=== PATIENT | male | born 1995 | race Caucasian/White ===

== ENCOUNTER 2021-04-10 18:37 | Emergency (ER) | payer BC, MEDICAID ==
[2021-04-10] MEDS ORDERED: MORPHINE SULFATE 2 MG INJ IV ONE (19:20)
[2021-04-10] MEDS ORDERED: Zofran 4 MG/2 ML VIAL IV ONE (19:20)
[2021-04-10] MEDS ORDERED: Sodium Chloride 0.9% 1000 ML 1,000 ML IV STA (19:20)
[2021-04-10 19:42] LABS: BASOPHIL % 0.2 % (0.0-0.4); Basophil (Absolute #) 0.01 (0-0.4); Eosinophil % 1.5 % (0.00-5.0); Eosinophil (Absolute #) 0.06 (0-0.5); Hematocrit 43.4 % (42-50); Hemoglobin 14.9 gm/dl (12.5-18.0); Lymphocyte (Absolute #) 0.81 (1.0-4.6); Lymphocytes % 19.9 % (24.0-44.0); Mean Cell Volume 87.7 fl (78-100); Mean Corpuscular Hemoglobin 30.1 pg (26-32); Mean Corpuscular Hgb Concent. 34.3 g/dl (32-36); Mean Platelet Volume 9.1 fl (7.5-11.0); Monocyte (Absolute #) 0.79 (0.0-1.3); Monocytes % 19.4 % (0.0-12.0); Platelet Count 226 K/mm3 (150-450); Red Blood Count 4.95 M/mm3 (4.1-5.6); Red Cell Distribution Width 12.4 % (11.5-14.0); White Blood Count 4.1 K/mm3 (4.0-10.5)
[2021-04-10 20:00] LABS: ALBUMIN 4.7 g/dL (3.5-5.0); ALKALINE PHOSPHATASE 84 U/L (38-126); ANION GAP 14.2 MEQ/L (5-15); BLOOD UREA NITROGEN 20 mg/dL (9-20); CHLORIDE 103 mmol/L (98-107); Calcium 9.6 mg/dL (8.4-10.2); Carbon Dioxide 25 mmol/L (22-30); Creatinine 1 0.89 mg/dL (0.66-1.25); EST GLOMERULAR FILTRATION RATE > 60.0 ML/MIN; Glucose 82 mg/dL (74-106); LIPASE 34 U/L (23-300); Potassium 3.9 mmol/L (3.5-5.1); SGOT/AST 49 U/L (17-59); SGPT/ALT 32 U/L (0-50); SODIUM 139 mmol/L (137-145); Total Protein 7.4 g/dL (6.3-8.2)
--- NOTE | 2021-04-10 20:06 | ERPHSYRPT ---
- History of Present Illness Time Seen by Provider: 04/10/21 18:51 Historian: patient Exam Limitations: no limitations Patient Subjective Stated Complaint: pt alert,resp easy, skin w/d/p. face mask in place,abd soft, no edema Triage Nursing Assessment: pt states he is having lose stools for a month now, a stool every 3-4 hours, able to eat a drink well Physician History: 25 years old presented in the ER with 1 month history of off-and-on diarrhea loose watery having 3-4 bowel movements every day with cramping generalized without any associated nausea or vomiting. Patient reports he has to strain every time. No fever or chills reported. Timing/Duration: week(s) (4), gradual onset, worse Quality: cramping Abdominal Pain Onset Location: generalized abdomen Pain Radiation: no radiation Severity of Pain-Max: moderate Severity of Pain-Current: mild Modifying Factors: Worsens With: defecating Associated Symptoms: diarrhea, No heartburn, No nausea Previous symptoms: same symptoms as today Allergies/Adverse Reactions: Penicillins Allergy (Verified 04/10/21 18:54) Home Medications: Buspirone HCl 5 mg [Buspar 5 mg] 1 ea DAILY 04/10/21 [History] Cariprazine HCl [Vraylar] 1 mg DAILY 04/10/21 [History] Hx Influenza Vaccination/Date Given: No Hx Pneumococcal Vaccination/Date Given: No Immunizations Up to Date: Yes Travel Risk - International Travel Have you traveled outside of the country in past 3 weeks: No - Coronavirus Screening Are you exhibiting any of the following symptoms?: No Close contact with a COVID-19 positive Pt in past 14-21 Days: No - Vaccine Status Have you recieved a Covid-19 vaccination: No - Review of Systems Constitutional: No Symptoms Eyes: No Symptoms Ears, Nose, & Throat: No Symptoms Respiratory: No Symptoms Cardiac: No Symptoms Abdominal/Gastrointestinal: Abdominal Pain, Diarrhea Genitourinary Symptoms: No Symptoms Musculoskeletal: No Symptoms Skin: No Symptoms Neurological: No Symptoms Psychological: Anxiety Endocrine: No Symptoms Hematologic/Lymphatic: No Symptoms Immunological/Allergic: No Symptoms - Past Medical History Pertinent Past Medical History: Yes Psycho-Social History: Anxiety, Depression, Other Other Medical History: ptsd - Past Surgical History Past Surgical History: No - Social History Smoking Status: Current some day smoker Exposure to second hand smoke: Yes Drug Use: none Patient Lives Alone: No - Nursing Vital Signs Nursing Vital Signs: Initial Vital Signs Temperature 97.0 F 04/10/21 18:47 Pulse Rate 74 04/10/21 18:47 Respiratory Rate 18 04/10/21 18:47 Blood Pressure 137/72 04/10/21 18:47 O2 Sat by Pulse Oximetry 100 04/10/21 18:47 Pain Scale Pain Intensity 6 - Physical Exam General Appearance: no apparent distress, alert Eye Exam: PERRL/EOMI, eyes nml inspection Ears, Nose, Throat Exam: normal ENT inspection, pharynx normal Neck Exam: normal inspection, non-tender, supple, full range of motion Respiratory Exam: normal breath sounds, lungs clear Cardiovascular Exam: regular rate/rhythm, normal heart sounds Gastrointestinal/Abdomen Exam: soft, normal bowel sounds, tenderness (Minimal generalized tenderness without guarding or rebound) Back Exam: normal inspection, normal range of motion Extremity Exam: normal inspection, normal range of motion Neurologic Exam: alert, oriented x 3, cooperative Skin Exam: normal color SpO2 Interpretation: normal SpO2: 100 O2 Delivery: Room Air Ordered Tests: Active Orders 24 hr Category Date Time Status IV Insertion STAT Care 04/10/21 19:20 Active NPO (ED) STAT Care 04/10/21 19:20 Active OBSTR/ACUTE ABDOMEN SERIES Stat Exams 04/10/21 19:21 Taken CBC W DIFF Stat Lab 04/10/21 19:30 Completed CMP Stat Lab 04/10/21 19:30 Completed LIPASE Stat Lab 04/10/21 19:30 Completed UA W/RFX UR CULTURE Stat Lab 04/10/21 20:42 Received Medication Summary Discontinued Medications Generic Name Dose Route Start Last Admin Trade Name Freq PRN Reason Stop Dose Admin Sodium Chloride 1,000 mls @ 999 mls/hr 04/10/21 19:20 04/10/21 20:16 Sodium Chloride 0.9% 1000 Ml IV 04/10/21 20:20 999 mls/hr .Q1H1M STA Administration Sodium Chloride Confirm 04/10/21 20:08 Sodium Chloride 0.9% 1000 Ml Administered 04/10/21 20:09 Dose 1,000 mls @ ud .ROUTE .STK-MED ONE Morphine Sulfate 2 mg 04/10/21 19:20 04/10/21 20:16 Morphine Sulfate 2 Mg Inj IV 04/10/21 19:21 2 mg STAT ONE Administration Morphine Sulfate Confirm 04/10/21 20:08 Morphine Sulfate 2 Mg Inj Administered 04/10/21 20:09 Dose 2 mg .ROUTE .STK-MED ONE Ondansetron HCl 4 mg 04/10/21 19:20 04/10/21 20:16 Zofran 4 Mg/2 Ml Vial IV 04/10/21 19:21 4 mg STAT ONE Administration Ondansetron HCl Confirm 04/10/21 20:08 Zofran 4 Mg/2 Ml Vial Administered 04/10/21 20:09 Dose 4 mg .ROUTE .STK-MED ONE Lab/Rad Data: Laboratory Result Diagrams 04/10/21 19:30 04/10/21 19:30 Laboratory Results 04/10/21 04/10/21 Range/Units 19:30 19:30 WBC 4.1 (4.0-10.5) K/mm3 RBC 4.95 (4.1-5.6) M/mm3 Hgb 14.9 (12.5-18.0) gm/dl Hct 43.4 (42-50) % MCV 87.7 (78-100) fl MCH 30.1 (26-32) pg MCHC 34.3 (32-36) g/dl RDW 12.4 (11.5-14.0) % Plt Count 226 (150-450) K/mm3 MPV 9.1 (7.5-11.0) fl Gran % 59.0 (36.0-66.0) % Eos # (Auto) 0.06 (0-0.5) Absolute Lymphs (auto) 0.81 L (1.0-4.6) Absolute Monos (auto) 0.79 (0.0-1.3) Lymphocytes % 19.9 L (24.0-44.0) % Monocytes % 19.4 H (0.0-12.0) % Eosinophils % 1.5 (0.00-5.0) % Basophils % 0.2 (0.0-0.4) % Absolute Granulocytes 2.40 (1.4-6.9) Basophils # 0.01 (0-0.4) Sodium 139 (137-145) mmol/L Potassium 3.9 (3.5-5.1) mmol/L Chloride 103 (98-107) mmol/L Carbon Dioxide 25 (22-30) mmol/L Anion Gap 14.2 (5-15) MEQ/L BUN 20 (9-20) mg/dL Creatinine 0.89 (0.66-1.25) mg/dL Estimated GFR > 60.0 ML/MIN Glucose 82 (74-106) mg/dL Calcium 9.6 (8.4-10.2) mg/dL Total Bilirubin 0.70 (0.2-1.3) mg/dL AST 49 (17-59) U/L ALT 32 (0-50) U/L Alkaline Phosphatase 84 (38-126) U/L Serum Total Protein 7.4 (6.3-8.2) g/dL Albumin 4.7 (3.5-5.0) g/dL Lipase 34 (23-300) U/L - Progress Progress: improved Progress Note: 04/10/21 20:57 Negative acute abdomen work-up. Given 2 mg morphine, feeling much better on reevaluation. Recommended outpatient follow-up. 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 Discussed signs symptoms of worsening needing return to ER which he seems understanding. Counseled pt/family regarding: lab results, diagnosis, need for follow-up, rad results - Departure Departure Disposition: Home Clinical Impression: Intermittent diarrhea Abdominal pain Qualifiers: Abdominal location: generalized Qualified Code(s): R10.84 - Generalized abdominal pain Condition: Stable Critical Care Time: No Referrals: LISA MCMAHON MD [Primary Care Provider] - Follow Up with PCP/3 days Instructions: Acute Abdomen (Belly Pain), Adult (DC), Diarrhea in Adolescents and Adults Additional Instructions: Drink plenty of fluids. Take Tylenol/ibuprofen as needed. Follow-up with primary care for reevaluation and may need evaluation/referral for gastroenterology. Return to ER for intractable abdominal pain/diarrhea/fever chills etc.
[2021-04-10] MEDS ORDERED: Sodium Chloride 0.9% 1000 ML 1,000 ML ONE (20:08)
[2021-04-10] MEDS ORDERED: MORPHINE SULFATE 2 MG INJ ONE (20:08)
[2021-04-10] MEDS ORDERED: Zofran 4 MG/2 ML VIAL ONE (20:08)
[2021-04-10 20:56] LABS: Appearance CLEAR (CLEAR); Bilirubin NEGATIVE (NEGATIVE); Blood NEGATIVE Ery/ul (0-5); Glucose NEGATIVE (NEGATIVE); Ketones SMALL (NEGATIVE); Leukocyte Esterase NEGATIVE (NEGATIVE); Mucus MANY /HPF (NEGATIVE); Nitrite NEGATIVE (NEGATIVE); Protein,Urine Dip NEGATIVE (Negative); Urobilinogen 2 mg/dL (0-1); WBC 0-2 /HPF (0-5)
[2021-04-10 21:16] VITALS: BP 109/49; PULSE 56; O2SAT 98
--- NOTE | 2021-04-10 22:17 | XRAY ---
Indication: Abdomen/rectal pain and diarrhea one month. Comparison: None 2 view abdomen nonacute and nonobstructed. Solid organs unremarkable. Osseous structures intact with mild double curvature thoracolumbar scoliosis. Single PA chest demonstrates normal heart and lungs with incidental right base calcified granuloma. Impression: Negative abdomen. Nonacute one view chest with incidental old granulomatous disease.
== END 2021-04-10 21:15 | disposition home or self-care (01) ==
LOC: ED 18:37
DX: R10.84 Generalized abdominal pain (principal)
CPT/HCPCS: 36000; 36415; 74022; 80053; 81001; 83690; 85025; 96374; 96375; 99284; J2270; J2405

== ENCOUNTER 2022-12-09 16:10 | Emergency (ER) | payer OTHER ==
--- NOTE | 2022-12-09 16:17 | ERPHSYRPT ---
- History of Present Illness Time Seen by Provider: 12/09/22 16:17 Source: patient Exam Limitations: no limitations Allergies/Adverse Reactions: Penicillins Allergy (Verified 04/10/21 18:54) Home Medications: Buspirone HCl 5 mg [Buspar 5 mg] 1 ea DAILY 04/10/21 [History] Cariprazine HCl [Vraylar] 1 mg DAILY 04/10/21 [History] Hx Influenza Vaccination/Date Given: No Hx Pneumococcal Vaccination/Date Given: No Travel Risk - Vaccine Status Have you recieved a Covid-19 vaccination: No - Past Medical History Pertinent Past Medical History: Yes Psycho-Social History: Anxiety, Depression, Other Other Medical History: ptsd - Past Surgical History Past Surgical History: No - Social History Smoking Status: Current some day smoker Exposure to second hand smoke: Yes Drug Use: none Patient Lives Alone: No - Departure Referrals: LISA MCMAHON MD [Primary Care Provider] - Follow up/PCP as directed
[2022-12-09 16:52] VITALS: BP 135/61; PULSE 90; O2SAT 99
--- NOTE | 2022-12-09 16:56 | ERPHSYRPT ---
- History of Present Illness Time Seen by Provider: 12/09/22 16:17 Source: patient Exam Limitations: no limitations Patient Subjective Stated Complaint: Abscess Triage Nursing Assessment: Patient ambulated back to ED and transferred self to bed. Patient A+O X3. Patient's skin pink, warm and dry. Patient complains of abscess to right inner groin that is red with hard area for two weeks. Patient also complains of rectal pressure for the past few days due to having extra large bowel movements. Patient denies pain or discomfort. Physician History: This is a 27-year-old white male who is a daily smoker of cigarettes. He also has anxiety issues. Patient complains with approximately 2 week history of swelling in the right inguinal/groin region. It is red and mildly tender. He feels that this is increased in size. In addition he has vague complaints of rectal pressure. However, he did state that he had a normal colonoscopy performed approximately 2 months ago. Patient has not had any fevers. He is not had any spontaneous bleeding from the rectum. Timing/Duration: week(s) (2) Quality: painful Severity: mild Location: other Possible Causes: no cause identified (Right groin) Associated Symptoms: denies symptoms Allergies/Adverse Reactions: Penicillins Allergy (Verified 12/09/22 16:42) Hx Influenza Vaccination/Date Given: No Hx Pneumococcal Vaccination/Date Given: No Immunizations Up to Date: Yes Travel Risk - International Travel Have you traveled outside of the country in past 3 weeks: No - Coronavirus Screening Are you exhibiting any of the following symptoms?: No Close contact with a COVID-19 positive Pt in past 14-21 Days: No - Vaccine Status Have you recieved a Covid-19 vaccination: No - Review of Systems Constitutional: No Symptoms Eyes: No Symptoms Ears, Nose, & Throat: No Symptoms Respiratory: No Symptoms Cardiac: No Symptoms Abdominal/Gastrointestinal: No Symptoms Genitourinary Symptoms: Other (Right inguinal subcutaneous mass/tenderness) Musculoskeletal: No Symptoms Skin: No Symptoms Neurological: No Symptoms Psychological: No Symptoms Endocrine: No Symptoms Hematologic/Lymphatic: No Symptoms Immunological/Allergic: No Symptoms All Other Systems: Reviewed and Negative - Past Medical History Pertinent Past Medical History: Yes Psycho-Social History: Anxiety, Depression, Other Other Medical History: ptsd - Past Surgical History Past Surgical History: No - Social History Smoking Status: Current some day smoker How long have you smoked: years Exposure to second hand smoke: Yes Drug Use: marijuana Patient Lives Alone: No - Nursing Vital Signs Nursing Vital Signs: Initial Vital Signs Temperature 98.3 F 12/09/22 16:43 Pulse Rate 90 12/09/22 16:43 Respiratory Rate 18 12/09/22 16:43 Blood Pressure 135/61 12/09/22 16:43 O2 Sat by Pulse Oximetry 99 12/09/22 16:43 Pain Scale Pain Intensity 0 - Physical Exam General Appearance: no apparent distress, alert, anxiety Eye Exam: PERRL/EOMI, eyes nml inspection Ears, Nose, Throat Exam: normal ENT inspection, moist mucous membranes Neck Exam: normal inspection, non-tender, supple, full range of motion Respiratory Exam: airway intact, No chest tenderness, No respiratory distress Gastrointestinal/Abdomen Exam: No tenderness Male Genitalia Exam: other (Right inguinal region with approximately 1 cm x 2 cm in its longest dimension slightly reddened area of induration without abscess present.) Rectal Exam: other (External examination shows no abscess and there is no evidence of any rectal bleeding) Back Exam: normal inspection, normal range of motion, No CVA tenderness, No vertebral tenderness Extremity Exam: normal inspection, normal range of motion, pelvis stable Neurologic Exam: alert, oriented x 3, cooperative, conversion developer II-XII nml as tested, normal mood/affect, nml cerebellar function, nml station & gait, sensation nml Skin Exam: normal color, warm, dry Lymphatic Exam: No adenopathy SpO2 Interpretation: normal SpO2: 99 - Course Nursing assessment & vital signs reviewed: Yes - Progress Progress: unchanged Progress Note: 12/09/22 17:20 Medical decision making: This patient has a medical issue that is of low complexity. Patient has chronic rectal pressure and he has a sports medicine specialist who follows this issue. He had a colonoscopy as recent as 2 months ago and it was normal per his report. I am referring the patient back to his primary care doctor and sports medicine specialist for this issue. Regarding the patient's right inguinal tenderness and subcutaneous mass, it is an indurated area with no evidence of abscess to surgically drain in the emergency department. My decision was made based on the patient's complaint, patient history and physical exam. Patient does not need any radiographic studies, laboratory data or medications here in the emergency department. I discussed the formulated plan of discharge which is to take the Bactrim DS medication as prescribed, follow-up with your primary care physician and sports medicine specialist as well as bath soaks with warm soapy water or warm Epson salt soaks. Counseled pt/family regarding: diagnosis, need for follow-up - Departure Departure Disposition: Home Clinical Impression: Induration of skin Condition: Stable Critical Care Time: No Referrals: LISA MCMAHON MD [Primary Care Provider] - Follow up/PCP as directed Additional Instructions: Take your antibiotics as prescribed. Follow-up with your primary care provider and your sports medicine specialist for further evaluation and management. Use sitz bath with warm soapy water or warm Epson salt soaks twice a day. Prescriptions: Smz/Tmp Ds Tablet [Bactrim Ds Tablet] 1 udtab PO BID #14 tablet
== END 2022-12-09 17:26 | disposition home or self-care (01) ==
LOC: ED 16:10
DX: R23.4 Changes in skin texture (principal); R10.2 Pelvic and perineal pain; Z28.310 Unvaccinated for COVID-19; Z72.0 Tobacco use
CPT/HCPCS: 99281

== ENCOUNTER 2023-03-10 12:28 | Emergency (ER) | payer BC, OTHER ==
[2023-03-10] MEDS ORDERED: Sodium Chloride 0.9% 1000 ML 1,000 ML IV STA (13:53)
--- NOTE | 2023-03-10 13:59 | ERPHSYRPT ---
- History of Present Illness Time Seen by Provider: 03/10/23 13:53 Source: patient Patient Subjective Stated Complaint: To er c/o rectal pain, swelling, "masslike feeling when I place the suppository". intermittent abd pain, difficulty having bowel movements. Denies any bleeding in stools or on toilet paper. PT reports intermittent dizziness also. Issue has been occuring for 2 months though pt n oticed increased swelling to rectum today Triage Nursing Assessment: pt arrives p/w/d resp easy a@ox 3. pt appears anxious about situation. Pt has difficulty explaining situation and is fearful he has "rectal cancer". PT in no distress BS x 4. last BM this am Physician History: Patient 27-year-old male presents to emergency department for evaluation of a masslike sensation in his rectum. Patient states he has been feeling some rectal pain and itching sensation. Patient had a colonoscopy in September which he reports was normal. Patient states he was diagnosed with internal hemorrhoids. Patient was then prescribed hydrocodone acetate rectal suppository by his family care doctor. Patient states he has been using this regularly for the past 2 months. Patient states that he occasionally feels dizzy. Patient states he feels a rectal fullness otherwise feels well. No dizziness at this time. Patient states he is otherwise healthy. Significant other at bedside. They voiced no other complaints or concerns at this time. Portions of this note were created with voice recognition technology. There may be grammatical, spelling, punctuation or sound alike errors Timing/Duration: week(s) Severity: moderate (1 week) Modifying Factors: Improves With: nothing Associated Symptoms: denies symptoms Allergies/Adverse Reactions: Penicillins Allergy (Verified 12/09/22 16:42) Home Medications: No Reportable Medications [No Reported Medications] 03/10/23 [History] Hx Influenza Vaccination/Date Given: No Hx Pneumococcal Vaccination/Date Given: No Travel Risk - International Travel Have you traveled outside of the country in past 3 weeks: No - Coronavirus Screening Are you exhibiting any of the following symptoms?: No Close contact with a COVID-19 positive Pt in past 14-21 Days: No - Vaccine Status Have you recieved a Covid-19 vaccination: No - Review of Systems Constitutional: No Symptoms, No Fever, No Chills Eyes: No Symptoms Ears, Nose, & Throat: No Symptoms Respiratory: No Symptoms, No Cough, No Dyspnea Cardiac: No Symptoms, No Chest Pain, No Edema, No Syncope Abdominal/Gastrointestinal: No Symptoms, No Abdominal Pain, No Nausea, No Vomiting, No Diarrhea Genitourinary Symptoms: No Symptoms, No Dysuria Musculoskeletal: No Symptoms, No Back Pain, No Neck Pain Skin: No Symptoms, No Rash Neurological: No Symptoms, No Dizziness, No Focal Weakness, No Sensory Changes Psychological: No Symptoms Endocrine: No Symptoms Hematologic/Lymphatic: No Symptoms Immunological/Allergic: No Symptoms All Other Systems: Reviewed and Negative - Past Medical History Pertinent Past Medical History: Yes Psycho-Social History: Anxiety, Depression, Other Other Medical History: ptsd - Past Surgical History Past Surgical History: No - Social History Smoking Status: Current some day smoker How long have you smoked: years Exposure to second hand smoke: Yes Drug Use: marijuana Patient Lives Alone: No - Nursing Vital Signs Nursing Vital Signs: Initial Vital Signs Blood Pressure 124/66 03/10/23 14:01 O2 Sat by Pulse Oximetry 96 03/10/23 14:01 Pain Scale Pain Intensity 5 - Physical Exam General Appearance: no apparent distress, alert Eye Exam: PERRL/EOMI, eyes nml inspection Ears, Nose, Throat Exam: normal ENT inspection, TMs normal, pharynx normal, moist mucous membranes Neck Exam: normal inspection, non-tender, supple, full range of motion Respiratory Exam: normal breath sounds, lungs clear, No respiratory distress Cardiovascular Exam: regular rate/rhythm, normal heart sounds, normal peripheral pulses Gastrointestinal/Abdomen Exam: soft, normal bowel sounds, other (No external he morrhoids observed.), No tenderness, No mass Back Exam: normal inspection, normal range of motion, No CVA tenderness, No vertebral tenderness Extremity Exam: normal inspection, normal range of motion, pelvis stable Neurologic Exam: alert, oriented x 3, cooperative, normal mood/affect, nml cerebellar function, nml station & gait, sensation nml, No motor deficits Skin Exam: normal color, warm, dry, No rash Lymphatic Exam: No adenopathy SpO2: 98 O2 Delivery: Room Air - Course Nursing assessment & vital signs reviewed: Yes - CT Exams Abdomen/Pelvis CT Interpretation: Tele-radiologist Report (CT abdomen pelvis initially negativ e.) Ordered Tests: Active Orders 24 hr Category Date Time Status IV Insertion STAT Care 03/10/23 13:53 Active ABDOMEN AND PELVIS W CONTRAST [CT] Stat Exams 03/10/23 13:54 Completed CBC W DIFF Stat Lab 03/10/23 14:30 Completed CMP Stat Lab 03/10/23 14:30 Completed UA W/RFX UR CULTURE Stat Lab 03/10/23 14:15 Completed Medication Summary Discontinued Medications Generic Name Dose Route Start Last Admin Trade Name Tiarra PRN Reason Stop Dose Admin Sodium Chloride 1,000 mls @ 999 mls/hr 03/10/23 13:53 03/10/23 15:20 Sodium Chloride 0.9% 1000 Ml IV 03/10/23 14:53 Infused .Q1H1M STA Infusion Sodium Chloride Confirm 03/10/23 14:14 Sodium Chloride 0.9% 1000 Ml Administered 03/10/23 14:15 Dose 1,000 mls @ ud .ROUTE .K-MED ONE Lab/Rad Data: Laboratory Result Diagrams 03/10/23 14:30 03/10/23 14:30 Laboratory Results 03/10/23 03/10/23 03/10/23 Range/Units 14:30 14:30 14:15 WBC 6.5 (4.0-10.5) x10^3/uL RBC 5.16 (4.1-5.6) x10^6/uL Hgb 15.5 (12.5-18.0) g/dL Hct 44.5 (42-50) % MCV 86.2 (78-100) fL MCH 30.0 (26-32) pg MCHC 34.8 (32-36) g/dL RDW 11.8 (11.5-14.0) % Plt Count 235 (150-450) x10^3/uL MPV 9.1 (7.5-11.0) fL Gran % 68.2 H (36.0-66.0) % Immature Gran % (Auto) 0.5 H (0.00-0.4) % Nucleat RBC Rel Count 0.0 (0.00-0.1) % Eos # (Auto) 0.05 (0-0.5) x10^3/uL Immature Gran # (Auto) 0.03 (0.00-0.03) x10^3u/L Absolute Lymphs (auto) 1.47 (1.0-4.6) x10^3/uL Absolute Monos (auto) 0.51 (0.0-1.3) x10^3/uL Absolute Nucleated RBC 0.00 (0.00-0.01) x10^3u/L Lymphocytes % 22.5 L (24.0-44.0) % Monocytes % 7.8 (0.0-12.0) % Eosinophils % 0.8 (0.00-5.0) % Basophils % 0.2 (0.0-0.4) % Absolute Granulocytes 4.45 (1.4-6.9) x10^3/uL Basophils # 0.01 (0-0.4) x10^3/uL Sodium 140 (137-145) mmol/L Potassium 4.3 (3.5-5.1) mmol/L Chloride 103 (98-107) mmol/L Carbon Dioxide 26 (22-30) mmol/L Anion Gap 15.2 H (5-15) MEQ/L BUN 14 (9-20) mg/dL Creatinine 0.86 (0.66-1.25) mg/dL Estimated GFR > 60.0 ML/MIN Glucose 96 (74-106) mg/dL Calcium 9.6 (8.4-10.2) mg/dL Total Bilirubin 0.50 (0.2-1.3) mg/dL AST 29 (17-59) U/L ALT 20 (0-50) U/L Alkaline Phosphatase 77 (38-126) U/L Serum Total Protein 7.6 (6.3-8.2) g/dL Albumin 4.6 (3.5-5.0) g/dL Urine Color Yellow (Yellow) Urine Appearance Clear (Clear) Urine pH 6.0 (4.6-8.0) Ur Specific [place] 1.010 (1.005-1.030) Urine Protein Negative (Negative) Urine Glucose (UA) Negative (Negative) mg/dL Urine Ketones Negative (Negative) Urine Blood Negative (Negative) Urine Nitrite Negative (Negative) Urine Bilirubin Negative (Negative) Urine Urobilinogen 0.2 (0.2) mg/dL Ur Leukocyte Esterase Negative (Negative) U Hyaline Cast (Auto) NONE SEEN (0-2) /LPF Urine Microscopic RBC 0-2 (0-5) /HPF Urine Microscopic WBC 0-2 (0-5) /HPF Ur Epithelial Cells None Seen (None Seen) /HPF Urine Bacteria None Seen (None Seen) /HPF Urine Culture Reflexed NO (NO) - Progress Progress: improved Progress Note: Patient is a 27-year-old male presents to our ED for evaluation of rectal pain. Physical exam nonremarkable. Tests include CT abdomen pelvis which was unremarkable. CBC CMP within normal limits. UA normal. Patient received normal saline bolus. Patient reassessed. Patient resting comfortably. No indication for further work-up. Will discharge home. Complexity of problem addressed is moderate, new diagnosis with uncertain prognosis Complexity of data reviewed and analyzed is moderate. Dr. Oakley independently reviewed and analyzed laboratory studies including urinalysis. Risk of complication and or risk morbidity/mortality patient management is low. Patient received IV fluids only. Patient declined pain medication. We will discharge home. Patient agrees to follow-up with his primary care doctor within 48 hours for reevaluation. Patient advised to discontinue the rectal suppositories until evaluated by his primary care physician. No social determinants of health present to impede follow-up. Vital stable. Patient comfortable. He voices no other complaints or concerns at this time. Portions of this note were created with voice recognition technology. There may be grammatical, spelling, punctuation or sound alike errors 03/10/23 16:44 Counseled pt/family regarding: lab results, diagnosis, need for follow-up, rad results - Departure Departure Disposition: Home Clinical Impression: Rectal pain Condition: Stable Critical Care Time: No Referrals: LISA MCMAHON MD [Primary Care Provider] - Follow up/PCP as directed Additional Instructions: Discharge/Care Plan OMID STERLING was seen on 03/10/23 in the Emergency Room. The patient was counseled regarding Diagnosis,Lab results, Imaging studies, need for follow up and when to return to the Emergency Room. Prescriptions given: Discharge Note I have spoken with the patient and/or caregivers. I have explained the patient's condition, diagnosis and treatment plan based on the information available to me at this time. I have answered the patient's and/or caregiver's questions and addressed any concerns. The patient and/or caregivers have as good understanding of the patient's diagnosis, condition and treatment plan as can be expected at this point. The vital signs have been stable. The patient's condition is stable and appropriate for discharge from the emergency department. The patient will pursue further outpatient evaluation with the primary care physician or other designated or consulting physician as outlined in the discharge instructions. The patient and/or caregivers are agreeable to this plan of care and follow-up instructions have been explained in detail. The patient and/or caregivers have received these instruction. The patient/and or caregivers are aware that any significant change in condition or worsening of symptoms should prompt an immediate return to this or the closest emergency department or call 911.
[2023-03-10] MEDS ORDERED: Sodium Chloride 0.9% 1000 ML 1,000 ML ONE (14:14)
[2023-03-10 14:30] LABS: Appearance Clear (Clear); Bacteria None Seen /HPF (None Seen); Bilirubin Negative (Negative); Blood Negative (Negative); Epithelial Cells None Seen /HPF (None Seen); Glucose, Urine Negative (Negative); Hyaline Casts NONE SEEN /LPF (0-2); Ketones Negative (Negative); Leukocyte Esterase Negative (Negative); Nitrite Negative (Negative); Protein,Urine Dip Negative (Negative); RBC 0-2 /HPF (0-5); Urobilinogen 0.2 mg/dL (0.2); WBC 0-2 /HPF (0-5)
[2023-03-10 14:38] LABS: Absolute Neutrophil Ct (ANC) 4.45 x10^3/uL (1.4-6.9); BASOPHIL % 0.2 % (0.0-0.4); Basophil (Absolute #) 0.01 x10^3/uL (0-0.4); Eosinophil % 0.8 % (0.00-5.0); Eosinophil (Absolute #) 0.05 x10^3/uL (0-0.5); Hematocrit 44.5 % (42-50); Hemoglobin 15.5 g/dL (12.5-18.0); IMMATURE GRAN # 0.03 x10^3u/L (0.00-0.03); IMMATURE GRAN % 0.5 % (0.00-0.4); Lymphocyte (Absolute #) 1.47 x10^3/uL (1.0-4.6); Lymphocytes % 22.5 % (24.0-44.0); Mean Cell Volume 86.2 fL (78-100); Mean Corpuscular Hgb Concent. 34.8 g/dL (32-36); Mean Platelet Volume 9.1 fL (7.5-11.0); Monocyte (Absolute #) 0.51 x10^3/uL (0.0-1.3); Monocytes % 7.8 % (0.0-12.0); Neutrophil % 68.2 % (36.0-66.0); Platelet Count 235 x10^3/uL (150-450); Red Blood Count 5.16 x10^6/uL (4.1-5.6); Red Cell Distribution Width 11.8 % (11.5-14.0); White Blood Count 6.5 x10^3/uL (4.0-10.5)
[2023-03-10 14:40] LABS: ADD URINE CULTURE? NO (NO)
[2023-03-10 15:04] LABS: ALBUMIN 4.6 g/dL (3.5-5.0); ALKALINE PHOSPHATASE 77 U/L (38-126); ANION GAP 15.2 MEQ/L (5-15); BLOOD UREA NITROGEN 14 mg/dL (9-20); CHLORIDE 103 mmol/L (98-107); Calcium 9.6 mg/dL (8.4-10.2); Carbon Dioxide 26 mmol/L (22-30); Creatinine 1 0.86 mg/dL (0.66-1.25); EST GLOMERULAR FILTRATION RATE > 60.0 ML/MIN; Glucose 96 mg/dL (74-106); Potassium 4.3 mmol/L (3.5-5.1); SGOT/AST 29 U/L (17-59); SGPT/ALT 20 U/L (0-50); SODIUM 140 mmol/L (137-145); Total Protein 7.6 g/dL (6.3-8.2)
--- NOTE | 2023-03-10 16:10 | XRAY ---
CLINICAL HISTORY:Perirectal pain COMPARISON:None; TECHNIQUES:Contiguous multi-slice CT examinations of the abdomen and pelvis were acquired in the axial plane with coronal and sagittal reconstruction after the administration of intravenous contrast; FINDINGS: The visualized bilateral lung bases show a calcified nodule in the right lower lung Lobe measuring 6.1 mm in size. The liver is normal in contour and attenuation. No focal or diffuse lesion is seen. No evidence of intrahepatic biliary dilatation is seen. CBD and portal vein are normal. The gall bladder is regular in contour and attenuation. No evidence of calculi. The pancreas is normal in shape and contour. Peripancreatic planes appear normal. No evidence of calcification or pancreatic duct dilatation is seen. The spleen is normal in contour and attenuation. Adrenals are normal. Both kidneys are normal in size, shape, and attenuation. No stones/ No hydronephrosis. Tiny foci of intramedullary calcification are seen in both kidneys. Stomach and Small bowel loops are normal. The appendix is normal. A few tinny uncomplicated diverticuli are seen in the descending colon. Aorta and IVC are normal. The urinary bladder is empty. The prostate is normal. Rectum and perirectal fat planes are normal. The bone window setting shows Early lumbar spondylotic changes with mild scoliosis of the lumbar spine with convexity towards the left side. IMPRESSION: 1-Unremarkable contrast-enhanced CT of the abdomen and pelvis. 2-Unremarkable Rectum and perirectal fat planes. Electronically Signed by: Yong Shields MD. (03/10/2023 15:01:59 STERILIZER OPERATOR)
[2023-03-10 16:56] VITALS: BP 115/67; PULSE 62; O2SAT 99
== END 2023-03-10 16:56 | disposition home or self-care (01) ==
LOC: ED 12:28
DX: K62.89 Other specified diseases of anus and rectum (principal); Z28.310 Unvaccinated for COVID-19; Z72.0 Tobacco use
CPT/HCPCS: 36000; 36415; 74177; 80053; 81001; 85025; 99284